=== PATIENT | male | born 1985 | race Caucasian/White ===

== ENCOUNTER → 2023-08-19 12:04 | Outpatient (CLI) | payer OTHER, SELFPAY ==
[2023-08-19 13:06] LABS: Influenza A - CEPHEID Flu A NEGATIVE (NEGATIVE); Influenza B - CEPHEID Flu B NEGATIVE (NEGATIVE); Respiratory Syncytial Virus Negative (Negative)
[2023-08-19 13:08] LABS: COVID-19 CEPHEID 4-PLEX PCR Negative (Negative)
== END ==
PROVIDERS: Visit Provider Student in an Organized Health Care Education/Training Program
DX: R05.1 Acute cough (principal)
CPT/HCPCS: 0241U

== ENCOUNTER → 2023-08-19 12:31 | Outpatient (CLI) | payer OTHER, SELFPAY ==
--- NOTE | 2023-08-19 12:33 | DI.RAD.S_ITS ---
PROCEDURE: XR CHEST 2V INDICATIONS: blood tinged sputum, cough x 1 month TECHNIQUE: 2 views of the chest were acquired. COMPARISON: None. FINDINGS: Surgical changes and devices: None. Lungs and pleura: Lungs are clear. No pleural effusions or pneumothorax. Mediastinum: Mediastinal contours are normal. Heart size is normal. Bones and chest wall: No suspicious bony abnormalities. Soft tissues appear unremarkable. IMPRESSION: No acute cardiopulmonary abnormality is seen. Dictated by: Nitza Gambino M.D. on 08/19/2023 at 15:15 Approved by: Nitza Gambino M.D. on 08/19/2023 at 15:16
== END ==
PROVIDERS: Referring Provider Student in an Organized Health Care Education/Training Program; Visit Provider Student in an Organized Health Care Education/Training Program
DX: R05.1 Acute cough (principal)
CPT/HCPCS: 0241U; 71046

== ENCOUNTER 2024-02-02 12:06 | Emergency (ER) | payer OTHER, SELFPAY ==
[2024-02-02 12:13] VITALS: BP 163/88; PULSE 64; RESP 16; TEMP 36.3; O2SAT 100; BMI 19.6
--- NOTE | 2024-02-02 12:22 | DI.CT.S_ITS ---
PROCEDURE: CT HEAD/BRAIN WO CON INDICATIONS: right sided facial numbness TECHNIQUE: Noncontrast 4.5 mm thick angled axial sections acquired from the foramen magnum to the vertex, with coronal and sagittal reformats. For radiation dose reduction, the following was used: automated exposure control, adjustment of mA and/or kV according to patient size. COMPARISON: None. FINDINGS: Image quality: Diagnostic. CSF spaces: Basal cisterns are patent. No extra-axial fluid collections. Ventricles are normal in size and shape. Brain: No midline shift. No intracranial masses or hemorrhage. Beltran-white matter interface is normal. Skull and face: Calvarium and visualized facial bones are intact, without suspicious lesions. Sinuses: Visualized sinuses and mastoids are clear. IMPRESSION: No acute intracranial pathology. Dictated by: Yolette Duncan M.D. on 02/02/2024 at 12:47 Approved by: Yolette Duncan M.D. on 02/02/2024 at 12:48
[2024-02-02 12:53] LABS: Add Manual Diff / Slide Review NO; Basophils Absolute Auto 0 /uL (0-100); Basophils Percent Auto 0.3 % (0-2); Eosinophils Absolute Auto 0 /uL (0-450); Eosinophils Percent Auto 0.7 % (2-4); Hematocrit 43.9 % (41-53); Hemoglobin 14.5 g/dL (13.5-17.5); Lymphocytes Absolute Auto 1400 /uL (1100-4500); Lymphocytes Percent Auto 36.3 % (25-40); Mean Corpuscular Hemoglobin 29.9 PG (26-34); Mean Corpuscular Volume 90.7 fL (80-100); Monocytes Absolute Auto 300 /uL (0-900); Monocytes Percent Auto 7.1 % (3-14); Neutrophils Absolute Auto 2200 /uL (1500-7000); Neutrophils Percent Auto 55.6 % (50-75); Platelet Count 207 X10^3/uL (150-400); Red Blood Cell Count 4.84 X10^6/uL (4.5-5.9); Red Cell Distribution Width 13.6 % (11.6-14.8); White Blood Cell Count 3.9 X10^3/uL (4.5-11.0)
--- NOTE | 2024-02-02 12:59 | ED_ITS ---
HPI - Neuro Symptoms/Deficit General Chief Complaint: Neuro Symptoms/Deficit Stated Complaint: Numbness in face and right arm Time Seen by Provider: 02/02/24 12:59 Source: patient Mode of arrival: Ambulatory History of Present Illness HPI Narrative: 38-year-old male history of Sjogren's, prior pneumothorax with recurrence and chemical pleurodesis presents with complaint of numbness of the face. Patient states right-sided is face upper and lower. He woke up from sleep was having a dream where he was very angry and had these symptoms. He states this happens fairly frequently it is usually exacerbated by strong emotions or anxiety. We will come on sometimes if he has having a fight or something that is very stressful to him. We will come on fairly quickly stays for about a day or so sometimes resolve quicker and then resolves. He never gets any facial drooping. He has never had any significant speech changes. States he sometimes feels numb and today feels numb in both shoulders but does not have any numbness tingling extremities currently. No weakness. No difficulty with gait. He has not having any difficulty with speech currently. Patient states sometimes feel like his vision jumped when this happens but not always. He denies headache but states he does sort of get some discomfort in his head. He thought that his hearing was a little decreased when it happened. Patient states he still has a sensation that is decreased but if he touches his face he can feel it. He has had this happen on and off for some time. Patient denies any other symptoms. He notes that he has had prior TBI is, he was recently diagnosed for Sjogren's after being seen for rosacea by dermatology and then seen by rheumatology. He states no daily prescription medications except for topical rosacea. States he had prior surgery for recurrent pneumothorax. The 1st when it was spontaneous and then he went skiing a week later fell and had recurrence. 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 Patient states no known drug allergies. No tobacco, does drink alcohol, no recreational drugs. He saw rheumatology Dr. Gonzalez in [place]. On Anticoagulants: No Related Data Previous Rx's Medication Instructions Recorded amoxicillin 875 mg-potassium 1 tab PO Q12H #14 tabs 08/19/23 clavulanate 125 mg tablet Allergies Allergy/AdvReac Type Severity Reaction Status Date / Time No Known Drug Allergies Allergy Unverified 02/02/24 12:18 Review of Systems Review of Systems ROS Unobtainable: All systems reviewed & are unremarkable except as noted in HPI and below Hematologic/Lymphatic On Anticoagulants: No Patient History Social History Smoking Status: Never smoker Smoking Status: Never smoker alcohol intake frequency: 3 or more drinks per day Substance Use Type: does not use Exam Narrative Exam Narrative: GEN: well nourished, well appearing male, alert and oriented x 3, patient appears to be in mild distress. HEENT: Atraumatic, pupils are equal round reactive to light, extraocular movements are intact, nares are clear, TMs are clear with no fluid, there is no conjunctival pallor. Throat is clear without any exudates, erythema, tonsillar enlargement or uvular deviation, no facial droop. Normal speech. Patient does not appreciate any changes to sensation left for right with light touch. HEART: Regular rate and rhythm without murmur, clicks, rubs. No carotid bruits, pulses are equal in upper and lower extremities LUNGS:Lungs clear to auscultation, no wheezes, rales, crackles, chest moves symmetrically ABD:bowel sounds normal, soft, non-tender, no guarding, rebound, rigidity, no masses noted, no hepatosplenomegaly MSCL: Non-tender, no muscle atrophy, muscles strength 5/5 upper and lower extremities, full range of motion, normal gait NEURO:CN 2-12 intact, sensation normal, finger nose finger test normal, heel rico test normal SKIN: Patient has some erythema over the bridge of the nose and bilateral cheeks Initial Vital Signs Initial Vital Signs: Vital Signs Temperature 97.4 F L 02/02/24 12:13 Pulse Rate 64 02/02/24 12:13 Respiratory Rate 16 02/02/24 12:13 Blood Pressure 163/88 H 02/02/24 12:13 Pulse Oximetry 100 02/02/24 12:13 Oxygen Delivery Method Room Air 02/02/24 12:13 Scores NIH Stroke Scale Level of Conciousness: Alert, keenly responsive Ask month/age: Answers both questions correctly. Open/close eyes, close hand: Performs both tasks correctly Best gaze horizontal: Normal Visual boyce: No visual loss Facial palsy: Normal symetrical movement Left arm drift: No drift for full 10 sec Right arm drift: No drift for full 10 sec Left leg drift: No drift for full 5 sec Right leg drift: No drift for full 5 sec Limb ataxia: Absent Sensory on face/arms/legs: Normal, no sensory loss Best language: No aphasia, normal Dysarthria: Normal Extinction or inattention: No abnormality Total NIH Stroke scale score: 0 Course Orders Ordered: ED Orders 02/02/24 12:22 CT head/brain wo con Stat 02/02/24 12:40 Complete Blood Count AUTO DIFF Stat Comprehensive Metabolic Panel Stat TSH [Thyroid Stimulating Hormone] Stat Vital Signs Vital signs: Vital Signs - 8 hr 02/02/24 12:13 02/02/24 14:08 Temperature 97.4 F L Pulse Rate 64 54 L Respiratory Rate 16 17 Blood Pressure 163/88 H 120/75 Pulse Oximetry 100 99 Oxygen Delivery Method Room Air Room Air MDM - Neuro Symptoms/Deficit Lab Data 02/02/24 12:40 02/02/24 12:40 Labs: Lab Results 02/02/24 Range/Units 12:40 WBC 3.9 L (4.5-11.0) X10^3/uL RBC 4.84 (4.5-5.9) X10^6/uL Hgb 14.5 (13.5-17.5) g/dL Hct 43.9 (41-53) % MCV 90.7 (80-100) fL MCH 29.9 (26-34) PG MCHC 33.0 (30-36) % RDW 13.6 (11.6-14.8) % Plt Count 207 (150-400) X10^3/uL Neut % (Auto) 55.6 (50-75) % Lymph % (Auto) 36.3 (25-40) % [place] % (Auto) 7.1 (3-14) % Eos % (Auto) 0.7 L (2-4) % Baso % (Auto) 0.3 (0-2) % Neut # (Auto) 2200 (6993-0416) /uL Lymph # (Auto) 1400 (7907-8156) /uL [place] # (Auto) 300 (0-900) /uL Eos # (Auto) 0 (0-450) /uL Baso # (Auto) 0 (0-100) /uL Sodium 140 (137-145) mmol/L Potassium 5.2 H (3.4-5.1) mmol/L Chloride 103 (98-107) mmol/L Carbon Dioxide 32 (22-32) mmol/L BUN 8 L (9-20) mg/dL Creatinine 0.77 (0.66-1.25) mg/dL Estimated GFR > 60 (>60) mL/min BUN/Creatinine Ratio 10.4 (6-22) Glucose 106 H (70-100) mg/dL Calcium 9.9 (8.4-10.2) mg/dL Total Bilirubin 0.6 (0.2-1.3) mg/dL AST 37 (17-59) IU/L ALT 26 (<50) IU/L Alkaline Phosphatase 63 (38-126) U/L Total Protein 8.1 (6.3-8.2) g/dL Albumin 5.1 H (3.5-5.0) g/dL Globulin 3.0 (1.7-4.1) g/dL Albumin/Globulin Ratio 1.7 (1.0-2.8) TSH 1.18 (0.47-4.68) uIU/mL Imaging Data CT scan - head: Radiologist's Impression: Close Head CT (Signed) Yolette Duncan - 02/02/24 Chest X-Ray (Signed) Nitza Gambino - 08/19/23 [place] [address] CT Scan Report Signed Patient: Jonathan Vazquez MR#: [id number] : 1985 Acct:[id number] Age/Sex: 38 / M Date of Service: 02/02/24 Loc: ED Accession Number: [id number] Procedure: CT head/brain wo con Ordering Provider: Sonya Kinsye D.O. PROCEDURE: CT HEAD/BRAIN WO CON INDICATIONS: right sided facial numbness TECHNIQUE: Noncontrast 4.5 mm thick angled axial sections acquired from the foramen magnum to the vertex, with coronal and sagittal reformats. For radiation dose reduction, the following was used: automated exposure control, adjustment of mA and/or kV according to patient size. COMPARISON: None. FINDINGS: Image quality: Diagnostic. CSF spaces: Basal cisterns are patent. No extra-axial fluid collections. Ventricles are normal in size and shape. Brain: No midline shift. No intracranial masses or hemorrhage. Beltran-white matter interface is normal. Skull and face: Calvarium and visualized facial bones are intact, without suspicious lesions. Sinuses: Visualized sinuses and mastoids are clear. IMPRESSION: No acute intracranial pathology. Dictated by: Yolette Duncan M.D. on 02/02/2024 at 12:47 Approved by: Yolette Duncan M.D. on 02/02/2024 at 12:48 [facility] Narrative Medical decision making narrative: Head CT shows no acute change. Labs show white count of 3.9 hemoglobin of 14 platelets of 207, potassium 5 point, BUN 8 otherwise normal electrolytes, creatinine glucose is 106 albumin 5.1, TSH is 1.18 Patient's NIH is 0, he has no other acute changes he noticed still sensation if decrease in the right face no were else at this time. Patient states he has had this on and off in the past seems to be exacerbated by strong emotions or anxiety or stress. He states we will sometimes lasts entire day and then resolves. He has recently had some vague changes and was diagnosed with Sjogren's by rheumatology. Discussed with patient with recurrent episodes that resolve after a day if he had had stroke I would expect some change in his head CT, there was no mass, no bleed, patient has no acute neurologic changes currently. Discussed possibly atypical migraines but with his autoimmune history would probably have him follow up with Rheumatology to share these symptoms. Man's palsy, trigeminal neuralgia would be on the potential differential but are very unlikely with a brief episodes and no pain. Discussed return precautions. Discharge Plan Departure Patient Disposition: Home Clinical Impression: Paresthesia Activity Restrictions/Additional Instructions: I would recommend follow up with Rheumatology, if there has a very large time delay can start with primary care to share your symptoms. Your head CT today did not show any acute change, your potassium was mildly elevated make sure you are drinking plenty of fluids. Please return if you are having new or worsening symptoms, new weakness numbness, vision changes, difficulty with ambulation, speech or gait, vision loss, severe headaches, persistent vomiting or other new or concerning changes. Prescriptions: No Action amoxicillin-pot clavulanate 875-125 mg tablet 1 tab PO Q12H Qty: 14 0RF Referrals: Miscellaneous,Doctor, [Primary Care Provider] - Stand Alone Forms: Patient Portal/API/Survey
[2024-02-02 13:05] LABS: Alanine Aminotransferase 26 IU/L (<50); Albumin 5.1 g/dL (3.5-5.0); Albumin Globulin Ratio 1.7 (1.0-2.8); Alkaline Phosphatase 63 U/L (38-126); Aspartate Aminotransferase 37 IU/L (17-59); BUN Creatinine Ratio 10.4 (6-22); Bilirubin Total 0.6 mg/dL (0.2-1.3); Blood Urea Nitrogen 8 mg/dL (9-20); Calcium 9.9 mg/dL (8.4-10.2); Carbon Dioxide 32 mmol/L (22-32); Chloride 103 mmol/L (98-107); Estimated Glomerular Filt Rate > 60 mL/min (>60); Glucose 106 mg/dL (70-100); HEMOLYSIS < 15 (0-50); Potassium 5.2 mmol/L (3.4-5.1); Sodium 140 mmol/L (137-145); Total Protein 8.1 g/dL (6.3-8.2)
[2024-02-02 13:35] LABS: Thyroid Stimulating Hormone 1.18 uIU/mL (0.47-4.68)
--- NOTE | 2024-02-02 14:07 | PC.NURSE ---
Provider performed full medical exam.
[2024-02-02 14:08] VITALS: BP 120/75; PULSE 54; RESP 17; O2SAT 99
== END 2024-02-02 14:09 | disposition home or self-care (01) ==
PROVIDERS: Emergency Provider Emergency Medicine
DX: R20.2 Paresthesia of skin (principal); R29.700 NIHSS score 0; R79.89 Other specified abnormal findings of blood chemistry
CPT/HCPCS: 36415; 70450; 80053; 84443; 85025; 99284